=== PATIENT | male | born 1940 | race Caucasian/White ===

== ENCOUNTER 2023-03-23 19:55 | Inpatient (IN) | payer MEDICARE, OTHER ==
[~2023-03-23] VITALS: Ht 165.1 cm; Wt 71.2 kg
[2023-03-23] MEDS ORDERED: IV NORMAL SALINE 1000 ML BAG IV ONE (20:30)
[2023-03-23] MEDS ORDERED: PANT40TA49 PO (20:44)
[2023-03-23] MEDS ORDERED: EMPA10TA PO (20:44)
[2023-03-23] MEDS ORDERED: RANO10005 PO (20:44)
[2023-03-23] MEDS ORDERED: METF-440 PO (20:44)
[2023-03-23] MEDS ORDERED: DONE5TAB34 PO (20:44)
[2023-03-23] MEDS ORDERED: ATOR40TA PO (20:44)
[2023-03-23] MEDS ORDERED: DONE10TA44 PO (20:44)
[2023-03-23] MEDS ORDERED: TAMS-3 PO (20:44)
[2023-03-23] MEDS ORDERED: CLOP75TA33 PO (20:44)
[2023-03-23] MEDS ORDERED: PANTOPRAZOLE SODIUM 40 MG VIAL IV ONE (20:45)
[2023-03-23] MEDS ORDERED: PANTOPRAZOLE SODIUM 40 MG VIAL ONE (20:48)
[2023-03-23 21:15] LABS: BASOPHILS % (AUTO) 0.3 % (0.0-2.0); EOSINOPHILS # (AUTO) 0.1 K/uL (0.0-0.7); EOSINOPHILS % (AUTO) 0.6 % (0.0-7.0); HEMATOCRIT 40.4 % (36.7-47.1); HEMOGLOBIN 13.3 g/dL (12.5-16.3); LYMPHOCYTES # (AUTO) 1.3 K/uL (0.8-4.8); LYMPHOCYTES % (AUTO) 13.6 % (20.5-51.5); MEAN CORPUSCULAR HEMOGLOBIN 29.4 uug (23.8-33.4); MEAN CORPUSCULAR HGB CONC 33 g/dL (32.5-36.3); MEAN CORPUSCULAR VOLUME 89.2 fL (73.0-96.2); MONOCYTES # (AUTO) 0.6 K/uL (0.1-1.30); MONOCYTES % (AUTO) 6.2 % (0.0-11.0); NEUTROPHILS # (AUTO) 7.4 K/uL (1.8-8.9); NEUTROPHILS % (AUTO) 79.3 % (38.5-71.5); PLATELET COUNT (AUTO) 263 K/uL (152-348); RED BLOOD CELL COUNT(AUTO) 4.53 MIL/uL (4.06-5.63); RED CELL DISTRIBUTION WIDTH 14.8 % (12.1-16.2); WHITE BLOOD COUNT (AUTO) 9.4 K/uL (3.6-10.2)
[2023-03-23 21:19] LABS: DIFFERENTIAL COMMENT 1
[2023-03-23 21:24] LABS: CALCIUM 8.6 mg/dL (8.5-10.1); CARBON DIOXIDE 24 mmol/L (21-32); CHLORIDE 107 mmol/L (98-107); CREATININE 1.5 mg/dL (0.6-1.3); GLUCOSE 162 mg/dL (74-106); POTASSIUM 4.8 mmol/L (3.5-5.1); SODIUM SERUM 141 mmol/L (136-145); UREA NITROGEN, BLOOD 42 mg/dL (7-18)
[2023-03-23 21:33] LABS: ALANINE AMINOTRANSFERASE 29 U/L (16-63); ALBUMIN 2.8 g/dL (3.4-5.0); ALKALINE PHOSPHATASE 68 U/L (50-136); ASPARTATE AMINOTRANSFERASE 8 U/L (15-37); BILIRUBIN,DIRECT 0.3 mg/dL (0.0-0.2); BILIRUBIN,TOTAL 1.2 mg/dL (0.2-1.0); TOTAL PROTEIN, SERUM 5.4 g/dL (6.4-8.2)
[2023-03-23] MEDS ORDERED: PHYTONADIONE 10 MG/1 ML AMPUL SQ ONE (21:45)
[2023-03-23] MEDS ORDERED: PHYTONADIONE 10 MG/1 ML AMPUL ONE (21:56)
[2023-03-23 21:58] LABS: *BILIRUBIN,URIN NEGATIVE (NEGATIVE); *BLOOD, URINE NEGATIVE (NEGATIVE); *CLARITY,URINE CLEAR (CLEAR); *COLOR,URINE YELLOW (YELLOW); *KETONES,URINE 1+ (NEGATIVE); *PROTEIN,URINE NEGATIVE (NEGATIVE); *UROBILINOGEN,URINE 0.2 E.U./dl (NORMAL); LEUKOCYTE ESTERASE ,URINE NEGATIVE (NEGATIVE); NITRITE, URINE NEGATIVE (NEGATIVE); PH,URINE 5.5 (5.0-8.0)
[2023-03-23 22:02] LABS: RBC,URINE 0-3 /HPF (0-3); UGLUCOSE 3+ (NEGATIVE); WBC,URINE 0-3 /HPF (0-3)
[2023-03-24 01:00] VITALS: BP 100/68; TEMP 99; O2SAT 98
[2023-03-24 04:00] VITALS: BP 116/63; TEMP 98.2; O2SAT 98
[2023-03-24] MEDS ORDERED: REMEDY ESSENTIAL ZINC PASTE 113 GM TP PRN (05:15)
[2023-03-24] MEDS ORDERED: ONDANSETRON 4 MG/2 ML VIAL IV PRN (05:15)
[2023-03-24] MEDS ORDERED: PROPOFOL 200 MG/20 ML BOTTLE ONE (05:45)
[2023-03-24] MEDS ORDERED: LIDOCAINE-MPF 2% 5 ML VIAL ONE (05:45)
[2023-03-24 08:00] VITALS: BP 129/75; TEMP 98.3; O2SAT 100
[2023-03-24] MEDS: IV 1/2NS 1000 ML 1,000 ML IV PRN ×2 (08:03→23:04)
[2023-03-24] MEDS: PANTOPRAZOLE SODIUM 40 MG VIAL IV SCH ×2 (08:15→20:27)
[2023-03-24 09:08] LABS: BASOPHILS % (AUTO) 0.4 % (0.0-2.0); EOSINOPHILS % (AUTO) 0.5 % (0.0-7.0); HEMATOCRIT 32.1 % (36.7-47.1); HEMOGLOBIN 10.8 g/dL (12.5-16.3); LYMPHOCYTES % (AUTO) 23.9 % (20.5-51.5); MEAN CORPUSCULAR HEMOGLOBIN 30.1 uug (23.8-33.4); MEAN CORPUSCULAR HGB CONC 34 g/dL (32.5-36.3); MEAN CORPUSCULAR VOLUME 89.1 fL (73.0-96.2); MONOCYTES # (AUTO) 0.7 K/uL (0.1-1.30); NEUTROPHILS # (AUTO) 5.5 K/uL (1.8-8.9); NEUTROPHILS % (AUTO) 67.2 % (38.5-71.5); PLATELET COUNT (AUTO) 205 K/uL (152-348); RED CELL DISTRIBUTION WIDTH 14.9 % (12.1-16.2); WHITE BLOOD COUNT (AUTO) 8.2 K/uL (3.6-10.2)
[2023-03-24 09:09] LABS: DIFFERENTIAL COMMENT 1
[2023-03-24] MEDS: MAGNESIUM SULFATE/D5W 100 ML IV SCH ×2 (09:21→10:04)
[2023-03-24 09:40] LABS: ALANINE AMINOTRANSFERASE 15 U/L (16-63); ALBUMIN 2.6 g/dL (3.4-5.0); ALKALINE PHOSPHATASE 58 U/L (50-136); ASPARTATE AMINOTRANSFERASE 5 U/L (15-37); BILIRUBIN,TOTAL 0.7 mg/dL (0.2-1.0); CALCIUM 8.1 mg/dL (8.5-10.1); CARBON DIOXIDE 24 mmol/L (21-32); CHLORIDE 112 mmol/L (98-107); CREATININE 1.3 mg/dL (0.6-1.3); GLUCOSE 108 mg/dL (74-106); MAGNESIUM 2.2 mg/dL (1.8-2.4); POTASSIUM 4.2 mmol/L (3.5-5.1); SODIUM SERUM 144 mmol/L (136-145); TOTAL PROTEIN, SERUM 4.9 g/dL (6.4-8.2); UREA NITROGEN, BLOOD 49 mg/dL (7-18)
[2023-03-24] MEDS: METOPROLOL SUCCINATE XL 50 MG TAB.SR.24H PO SCH (10:06)
[2023-03-24 11:56] LABS: *BILIRUBIN,URIN NEGATIVE (NEGATIVE); *BLOOD, URINE NEGATIVE (NEGATIVE); *CLARITY,URINE CLEAR (CLEAR); *COLOR,URINE YELLOW (YELLOW); *KETONES,URINE NEGATIVE (NEGATIVE); *PROTEIN,URINE NEGATIVE (NEGATIVE); *UROBILINOGEN,URINE 0.2 E.U./dl (NORMAL); LEUKOCYTE ESTERASE ,URINE NEGATIVE (NEGATIVE); NITRITE, URINE NEGATIVE (NEGATIVE)
[2023-03-24] MEDS ORDERED: AMIODARONE HCL IV 150 MG in IV DEXTROSE 5% 100 ML IV ONE (12:00)
[2023-03-24 12:05] VITALS: BP 157/69; TEMP 98.3; O2SAT 95
[2023-03-24 12:19] LABS: *CREATININE,URINE 35.6 mg/dL (30-125); *SODIUM RNDM,URINE 49 mmol/L (40-220); *URINE TOTAL PROTEIN RANDOM < 6.0 mg/dL (<150/24HR)
[2023-03-24 12:20] LABS: UGLUCOSE 3+ (NEGATIVE)
[2023-03-24] MEDS: AMIODARONE HCL IV 450 MG in IV DEXTROSE 5% 250 ML IV PRN (12:40)
[2023-03-24 13:07] LABS: RBC,URINE NONE SEEN /HPF (0-3); WBC,URINE NONE SEEN /HPF (0-3)
[2023-03-24 16:07] VITALS: BP 121/53; TEMP 98.5; O2SAT 95
[2023-03-24] MEDS ORDERED: METF-494 PO (17:00)
[2023-03-24] MEDS: ACETAMINOPHEN 325 MG TABLET PO PRN (17:44)
[2023-03-24 20:00] VITALS: BP 105/63; TEMP 98.2; O2SAT 100
[2023-03-25] VITALS: BP 131/68; TEMP 98.1; O2SAT 100
[2023-03-25] MEDS: AMIODARONE HCL IV 450 MG in IV DEXTROSE 5% 250 ML IV PRN (00:18)
[2023-03-25] MEDS: ACETAMINOPHEN 325 MG TABLET PO PRN (01:00)
[2023-03-25 04:00] VITALS: BP 111/68; TEMP 98.5; O2SAT 99
[2023-03-25 07:11] LABS: BASOPHILS % (AUTO) 0.5 % (0.0-2.0); EOSINOPHILS # (AUTO) 0.2 K/uL (0.0-0.7); EOSINOPHILS % (AUTO) 1.9 % (0.0-7.0); HEMATOCRIT 27.9 % (36.7-47.1); HEMOGLOBIN 9.5 g/dL (12.5-16.3); LYMPHOCYTES % (AUTO) 23.1 % (20.5-51.5); MEAN CORPUSCULAR HEMOGLOBIN 30.2 uug (23.8-33.4); MEAN CORPUSCULAR HGB CONC 34 g/dL (32.5-36.3); MEAN CORPUSCULAR VOLUME 88.5 fL (73.0-96.2); MONOCYTES # (AUTO) 0.5 K/uL (0.1-1.30); MONOCYTES % (AUTO) 5.6 % (0.0-11.0); NEUTROPHILS % (AUTO) 68.9 % (38.5-71.5); PLATELET COUNT (AUTO) 192 K/uL (152-348); RED BLOOD CELL COUNT(AUTO) 3.16 MIL/uL (4.06-5.63); RED CELL DISTRIBUTION WIDTH 14.8 % (12.1-16.2); WHITE BLOOD COUNT (AUTO) 8.7 K/uL (3.6-10.2)
[2023-03-25 07:22] LABS: DIFFERENTIAL COMMENT 1
[2023-03-25 07:34] LABS: ALANINE AMINOTRANSFERASE 18 U/L (16-63); ALBUMIN 2.7 g/dL (3.4-5.0); ALKALINE PHOSPHATASE 49 U/L (50-136); ASPARTATE AMINOTRANSFERASE 7 U/L (15-37); CALCIUM 7.7 mg/dL (8.5-10.1); CARBON DIOXIDE 24 mmol/L (21-32); CHLORIDE 105 mmol/L (98-107); CREATINE KINASE, TOTAL 62 U/L (39-308); CREATININE 1.3 mg/dL (0.6-1.3); GLUCOSE 127 mg/dL (74-106); MAGNESIUM 2.5 mg/dL (1.8-2.4); PHOSPHOROUS 3.5 mg/dL (2.5-4.9); POTASSIUM 4.3 mmol/L (3.5-5.1); SODIUM SERUM 137 mmol/L (136-145); UREA NITROGEN, BLOOD 42 mg/dL (7-18)
[2023-03-25 07:45] LABS: THYROID STIMULATING HORMONE 1.157 mIU/mL (0.358-3.740)
[2023-03-25 08:00] VITALS: BP 167/72; TEMP 98.7; O2SAT 100
[2023-03-25] MEDS: PANTOPRAZOLE SODIUM 40 MG VIAL IV SCH ×2 (08:48→21:15)
[2023-03-25] MEDS: METOPROLOL SUCCINATE XL 50 MG TAB.SR.24H PO SCH (09:00)
[2023-03-25] MEDS: AMIODARONE HCL 200 MG TABLET PO SCH (10:45)
[2023-03-25 11:56] LABS: *OCCULT BLOOD STOOL POSITIVE (NEGATIVE)
[2023-03-25 16:00] VITALS: BP 149/63; TEMP 98.4; O2SAT 100
[2023-03-25] MEDS ORDERED: RANOLAZINE 1000 MG PO SCH (17:00)
[2023-03-25 18:08] LABS: BASOPHILS % (AUTO) 0.4 % (0.0-2.0); EOSINOPHILS # (AUTO) 0.2 K/uL (0.0-0.7); EOSINOPHILS % (AUTO) 1.7 % (0.0-7.0); HEMATOCRIT 27.9 % (36.7-47.1); HEMOGLOBIN 9.4 g/dL (12.5-16.3); LYMPHOCYTES # (AUTO) 1.7 K/uL (0.8-4.8); MEAN CORPUSCULAR HEMOGLOBIN 29.9 uug (23.8-33.4); MEAN CORPUSCULAR HGB CONC 34 g/dL (32.5-36.3); MEAN CORPUSCULAR VOLUME 88.8 fL (73.0-96.2); MONOCYTES # (AUTO) 0.6 K/uL (0.1-1.30); MONOCYTES % (AUTO) 6.9 % (0.0-11.0); NEUTROPHILS # (AUTO) 6.6 K/uL (1.8-8.9); PLATELET COUNT (AUTO) 197 K/uL (152-348); RED BLOOD CELL COUNT(AUTO) 3.14 MIL/uL (4.06-5.63); RED CELL DISTRIBUTION WIDTH 15.1 % (12.1-16.2); WHITE BLOOD COUNT (AUTO) 9.2 K/uL (3.6-10.2)
[2023-03-25 18:17] LABS: DIFFERENTIAL COMMENT 1
[2023-03-25 20:00] VITALS: BP 147/59; TEMP 98.4; O2SAT 100
[2023-03-25] MEDS ORDERED: DONEPEZIL 10 MG TABLET PO SCH (21:00)
[2023-03-25] MEDS: ATORVASTATIN 40 MG TABLET PO SCH (21:15)
[2023-03-25] MEDS: TAMSULOSIN HCL 0.4 MG CAP.SR.24H PO SCH (21:15)
[2023-03-26 00:30] VITALS: BP 116/54; TEMP 98.9; O2SAT 100
[2023-03-26] MEDS: IV 1/2NS 1000 ML 1,000 ML IV PRN ×2 (01:52→16:10)
[2023-03-26 04:35] VITALS: BP 136/60; TEMP 98; O2SAT 99
[2023-03-26 06:06] LABS: PTH, INTACT 63 pg/mL (15-65)
[2023-03-26 07:07] LABS: BASOPHILS % (AUTO) 0.4 % (0.0-2.0); EOSINOPHILS # (AUTO) 0.2 K/uL (0.0-0.7); EOSINOPHILS % (AUTO) 2.5 % (0.0-7.0); HEMATOCRIT 26.8 % (36.7-47.1); HEMOGLOBIN 9.2 g/dL (12.5-16.3); LYMPHOCYTES # (AUTO) 1.5 K/uL (0.8-4.8); LYMPHOCYTES % (AUTO) 20.1 % (20.5-51.5); MEAN CORPUSCULAR HEMOGLOBIN 30.2 uug (23.8-33.4); MEAN CORPUSCULAR HGB CONC 34 g/dL (32.5-36.3); MEAN CORPUSCULAR VOLUME 88.3 fL (73.0-96.2); MONOCYTES # (AUTO) 0.6 K/uL (0.1-1.30); MONOCYTES % (AUTO) 7.9 % (0.0-11.0); NEUTROPHILS # (AUTO) 5.1 K/uL (1.8-8.9); NEUTROPHILS % (AUTO) 69.1 % (38.5-71.5); PLATELET COUNT (AUTO) 174 K/uL (152-348); RED BLOOD CELL COUNT(AUTO) 3.03 MIL/uL (4.06-5.63); RED CELL DISTRIBUTION WIDTH 15.2 % (12.1-16.2); WHITE BLOOD COUNT (AUTO) 7.4 K/uL (3.6-10.2)
[2023-03-26 07:22] LABS: DIFFERENTIAL COMMENT 1
[2023-03-26 07:24] LABS: CALCIUM 7.8 mg/dL (8.5-10.1); CREATININE 1.2 mg/dL (0.6-1.3)
[2023-03-26] MEDS ORDERED: METFORMIN XR 500 MG TAB.SR.24H PO SCH (09:00)
[2023-03-26] MEDS ORDERED: DONEPEZIL 5 MG TABLET PO SCH (09:00)
[2023-03-26] MEDS: METOPROLOL SUCCINATE XL 25 MG TAB.SR.24H PO SCH (09:00)
[2023-03-26] MEDS: AMIODARONE HCL 200 MG TABLET PO SCH (09:20)
[2023-03-26] MEDS: PANTOPRAZOLE SODIUM 40 MG VIAL IV SCH ×2 (09:21→20:35)
[2023-03-26] MEDS ORDERED: LIDOCAINE 5% PATCH TD SCH (09:30)
[2023-03-26] MEDS ORDERED: POLYVINYL ALCOHOL OPHT DROPS 15 ML BOTTLE EACHEYE PRN (09:30)
[2023-03-26] MEDS: SUCRALFATE 1 G TABLET PO SCH ×3 (11:17→20:34)
[2023-03-26 12:00] VITALS: BP 127/61; TEMP 97.3; O2SAT 100
[2023-03-26 16:00] VITALS: BP 146/68; TEMP 98.7; O2SAT 100
[2023-03-26 20:30] VITALS: BP 122/78; TEMP 98.7; O2SAT 99
[2023-03-26] MEDS: TAMSULOSIN HCL 0.4 MG CAP.SR.24H PO SCH (20:34)
[2023-03-26] MEDS: ATORVASTATIN 40 MG TABLET PO SCH (20:35)
[2023-03-27] VITALS (7 sets, daily range): BP systolic 110–144; BP diastolic 53–97; TEMP 97.6–98.9; O2SAT 98–100
[2023-03-27 06:06] LABS: A/G RATIO 1.2 (0.7-1.7); ALBUMIN 2.5 g/dL (2.9-4.4); ALPHA-1-GLOBULIN 0.2 g/dL (0.0-0.4); ALPHA-2-GLOBULIN 0.5 g/dL (0.4-1.0); BETA GLOBULIN 0.7 g/dL (0.7-1.3); GAMMA GLOBULIN 0.7 g/dL (0.4-1.8); GLOBULIN, TOTAL 2.1 g/dL (2.2-3.9); M-SPIKE Not Observed g/dL (Not Observed)
[2023-03-27] MEDS: IV 1/2NS 1000 ML 1,000 ML IV PRN (06:32)
[2023-03-27] MEDS: SUCRALFATE 1 G TABLET PO SCH ×4 (08:05→21:17)
[2023-03-27 08:11] LABS: BASOPHILS % (AUTO) 0.3 % (0.0-2.0); EOSINOPHILS # (AUTO) 0.1 K/uL (0.0-0.7); EOSINOPHILS % (AUTO) 2.3 % (0.0-7.0); HEMATOCRIT 25.8 % (36.7-47.1); HEMOGLOBIN 8.7 g/dL (12.5-16.3); LYMPHOCYTES # (AUTO) 1.3 K/uL (0.8-4.8); LYMPHOCYTES % (AUTO) 20.4 % (20.5-51.5); MEAN CORPUSCULAR HEMOGLOBIN 30.2 uug (23.8-33.4); MEAN CORPUSCULAR HGB CONC 34 g/dL (32.5-36.3); MONOCYTES # (AUTO) 0.5 K/uL (0.1-1.30); MONOCYTES % (AUTO) 7.8 % (0.0-11.0); NEUTROPHILS # (AUTO) 4.4 K/uL (1.8-8.9); NEUTROPHILS % (AUTO) 69.2 % (38.5-71.5); PLATELET COUNT (AUTO) 165 K/uL (152-348); RED BLOOD CELL COUNT(AUTO) 2.89 MIL/uL (4.06-5.63); RED CELL DISTRIBUTION WIDTH 14.7 % (12.1-16.2); WHITE BLOOD COUNT (AUTO) 6.3 K/uL (3.6-10.2)
[2023-03-27] MEDS: AMIODARONE HCL 200 MG TABLET PO SCH (08:13)
[2023-03-27] MEDS: METOPROLOL SUCCINATE XL 25 MG TAB.SR.24H PO SCH (08:14)
[2023-03-27] MEDS: PANTOPRAZOLE SODIUM 40 MG VIAL IV SCH ×2 (08:14→21:17)
[2023-03-27 08:15] LABS: CALCIUM 7.7 mg/dL (8.5-10.1); CREATININE 1.1 mg/dL (0.6-1.3); MAGNESIUM 2.2 mg/dL (1.8-2.4); POTASSIUM 3.9 mmol/L (3.5-5.1)
[2023-03-27 08:16] LABS: DIFFERENTIAL COMMENT 1
[2023-03-27] MEDS: LIDOCAINE 5% PATCH TD SCH (08:26)
[2023-03-27] MEDS ORDERED: LIDOCAINE 5% PATCH TD SCH (09:00)
[2023-03-27] MEDS: JARDIANCE 10 MG PO SCH ×2 (16:27→16:29)
[2023-03-27] MEDS: ATORVASTATIN 40 MG TABLET PO SCH (21:17)
[2023-03-27] MEDS: TAMSULOSIN HCL 0.4 MG CAP.SR.24H PO SCH (21:17)
[2023-03-28 05:43] VITALS: BP 130/53; TEMP 97.8; O2SAT 99
[2023-03-28 08:00] VITALS: BP 141/61; TEMP 98.2; O2SAT 100
[2023-03-28] MEDS: SUCRALFATE 1 G TABLET PO SCH ×4 (08:05→20:20)
[2023-03-28] MEDS: JARDIANCE 10 MG PO SCH (08:46)
[2023-03-28] MEDS: LIDOCAINE 5% PATCH TD SCH (08:46)
[2023-03-28] MEDS: PANTOPRAZOLE SODIUM 40 MG VIAL IV SCH ×2 (08:46→20:19)
[2023-03-28] MEDS: AMIODARONE HCL 200 MG TABLET PO SCH (08:47)
[2023-03-28] MEDS: METOPROLOL SUCCINATE XL 25 MG TAB.SR.24H PO SCH (08:47)
[2023-03-28 09:51] LABS: BASOPHILS % (AUTO) 0.5 % (0.0-2.0); EOSINOPHILS # (AUTO) 0.2 K/uL (0.0-0.7); EOSINOPHILS % (AUTO) 2.7 % (0.0-7.0); HEMATOCRIT 27.5 % (36.7-47.1); HEMOGLOBIN 9.2 g/dL (12.5-16.3); LYMPHOCYTES # (AUTO) 1.2 K/uL (0.8-4.8); LYMPHOCYTES % (AUTO) 21.1 % (20.5-51.5); MEAN CORPUSCULAR HEMOGLOBIN 30.2 uug (23.8-33.4); MEAN CORPUSCULAR HGB CONC 34 g/dL (32.5-36.3); MONOCYTES # (AUTO) 0.4 K/uL (0.1-1.30); MONOCYTES % (AUTO) 7.4 % (0.0-11.0); NEUTROPHILS # (AUTO) 3.7 K/uL (1.8-8.9); NEUTROPHILS % (AUTO) 68.3 % (38.5-71.5); PLATELET COUNT (AUTO) 199 K/uL (152-348); RED BLOOD CELL COUNT(AUTO) 3.06 MIL/uL (4.06-5.63); RED CELL DISTRIBUTION WIDTH 14.9 % (12.1-16.2); WHITE BLOOD COUNT (AUTO) 5.5 K/uL (3.6-10.2)
[2023-03-28 09:55] LABS: DIFFERENTIAL COMMENT 1
[2023-03-28] MEDS ORDERED: AMIO200T6 PO (10:23)
[2023-03-28] MEDS ORDERED: SUCR1TAB31 PO (10:23)
[2023-03-28 12:00] VITALS: BP 159/54; TEMP 97.6; O2SAT 100
[2023-03-28 16:00] VITALS: BP 173/55; TEMP 98.3; O2SAT 100
[2023-03-28] MEDS ORDERED: LIDOCAINE-MPF 2% 5 ML VIAL ONE (16:00)
[2023-03-28] MEDS ORDERED: PROPOFOL 200 MG/20 ML BOTTLE ONE (16:00)
[2023-03-28 20:00] VITALS: BP 155/63; TEMP 97.5
[2023-03-28] MEDS: ATORVASTATIN 40 MG TABLET PO SCH (20:19)
[2023-03-28] MEDS: TAMSULOSIN HCL 0.4 MG CAP.SR.24H PO SCH (20:20)
[2023-03-29 04:00] VITALS: BP 151/70; TEMP 97.6; O2SAT 100
[2023-03-29] MEDS: SUCRALFATE 1 G TABLET PO SCH ×2 (06:30→11:30)
[2023-03-29 08:00] VITALS: BP 152/58; TEMP 98.2; O2SAT 100
[2023-03-29 08:23] LABS: BASOPHILS % (AUTO) 0.9 % (0.0-2.0); DIFFERENTIAL COMMENT 1; EOSINOPHILS # (AUTO) 0.2 K/uL (0.0-0.7); EOSINOPHILS % (AUTO) 3.2 % (0.0-7.0); HEMATOCRIT 26.1 % (36.7-47.1); HEMOGLOBIN 8.8 g/dL (12.5-16.3); LYMPHOCYTES # (AUTO) 1.3 K/uL (0.8-4.8); LYMPHOCYTES % (AUTO) 25.6 % (20.5-51.5); MEAN CORPUSCULAR HEMOGLOBIN 29.9 uug (23.8-33.4); MEAN CORPUSCULAR HGB CONC 34 g/dL (32.5-36.3); MEAN CORPUSCULAR VOLUME 88.8 fL (73.0-96.2); MONOCYTES # (AUTO) 0.3 K/uL (0.1-1.30); MONOCYTES % (AUTO) 6.9 % (0.0-11.0); NEUTROPHILS # (AUTO) 3.2 K/uL (1.8-8.9); NEUTROPHILS % (AUTO) 63.4 % (38.5-71.5); PLATELET COUNT (AUTO) 195 K/uL (152-348); RED BLOOD CELL COUNT(AUTO) 2.94 MIL/uL (4.06-5.63); RED CELL DISTRIBUTION WIDTH 15.4 % (12.1-16.2)
[2023-03-29] MEDS: JARDIANCE 10 MG PO SCH (08:42)
[2023-03-29] MEDS: PANTOPRAZOLE SODIUM 40 MG VIAL IV SCH (08:42)
[2023-03-29] MEDS: LIDOCAINE 5% PATCH TD SCH (08:42)
[2023-03-29] MEDS: AMIODARONE HCL 200 MG TABLET PO SCH (08:42)
[2023-03-29] MEDS: METOPROLOL SUCCINATE XL 25 MG TAB.SR.24H PO SCH (08:43)
[2023-03-29 11:30] VITALS: BP 173/56; TEMP 98.3; O2SAT 100
== END 2023-03-29 13:00 | disposition home or self-care (01) | DRG 377 ==
LOC: ER 19:57 → TELE3 22:10 → TELE-TD3 03-24 00:59 → TELE3 03-25 11:23 → MEDSURG3 03-29 08:55
PROVIDERS: ADMIT Nurse Practitioner Family; ATTEND Internal Medicine
PROC: 0DB68ZX Excision of Stomach, Via Natural or Artificial Opening Endoscopic, Diagnostic (ICD-10-PCS; principal; 2023-03-23)
PROC: 0DJ08ZZ Inspection of Upper Intestinal Tract, Via Natural or Artificial Opening Endoscopic (ICD-10-PCS; 2023-03-27)
DX: K26.4 Chronic or unspecified duodenal ulcer with hemorrhage (principal); N17.0 Acute kidney failure with tubular necrosis; D62 Acute posthemorrhagic anemia; I47.1 Supraventricular tachycardia; D68.59 Other primary thrombophilia; K29.71 Gastritis, unspecified, with bleeding; E11.22 Type 2 diabetes mellitus with diabetic chronic kidney disease; N18.9 Chronic kidney disease, unspecified; Z79.84 Long term (current) use of oral hypoglycemic drugs; Z79.02 Long term (current) use of antithrombotics/antiplatelets; I25.10 Atherosclerotic heart disease of native coronary artery without angina pectoris; Z95.5 Presence of coronary angioplasty implant and graft; R55 Syncope and collapse; Z87.11 Personal history of peptic ulcer disease; I25.2 Old myocardial infarction; I48.0 Paroxysmal atrial fibrillation; N40.0 Benign prostatic hyperplasia without lower urinary tract symptoms; I10 Essential (primary) hypertension
CPT/HCPCS: 36415; 71045; 83605; 83735; 83970; 84100; 84155; 84165; 84300; 84443; 84484; 85025; 85730; 86850; 86900; 86901; 93005; 93307; A4663; C9113; G0378; J0282; J3430; J3475; J3490; J7040; J7050